=== PATIENT | male | born 1985 | race Caucasian/White ===

== ENCOUNTER 2018-05-19 05:21 | Inpatient (IN) | payer BC ==
[~2018-05-19] VITALS: Ht 180.3 cm; Wt 91.4 kg
[2018-05-19] MEDS ORDERED: LACTATED RINGERS 1,000 ML IV SCH (06:02)
[2018-05-19] MEDS ORDERED: OMEP40CA6 PO (06:20)
[2018-05-19] MEDS ORDERED: GABA600T2 PO (06:20)
[2018-05-19] MEDS ORDERED: BUPIVACAINE/PF-EPI 0.5% 1:200K ONE (06:29)
[2018-05-19] MEDS ORDERED: morphine SULFATE/PF 1 MG/ML, 10ML ONE (06:29)
[2018-05-19] MEDS ORDERED: THROMBIN 20,000 UNIT VIAL TP ONE (06:30)
[2018-05-19] MEDS ORDERED: VANCOMYCIN 1,000 MG ONE (06:30)
[2018-05-19] MEDS ORDERED: LIDOCAINE 1%-EPI 1:100K, 30ML ONE (06:30)
[2018-05-19] MEDS ORDERED: FENTANYL PF 100 MCG/2ML ONE ×3 (06:30→10:36)
[2018-05-19] MEDS ORDERED: BACITRACIN 50,000 UNIT ONE (06:30)
[2018-05-19 06:36] VITALS: BP 116/73
[2018-05-19] MEDS ORDERED: FENTANYL PF 250 MCG/5ML ONE (07:23)
[2018-05-19] MEDS ORDERED: MIDAZOLAM 1 MG/ML, 2ML ONE (07:41)
[2018-05-19] MEDS ORDERED: DEXAMETHASONE 4 MG/ML, 1ML ONE (07:46)
[2018-05-19] MEDS ORDERED: ROCURONIUM 10 MG/ML,10ML ONE (07:46)
[2018-05-19] MEDS ORDERED: NEOSTIGMINE 1 MG/ML, 10ML ONE (07:46)
[2018-05-19] MEDS ORDERED: GLYCOPYRROLATE 0.2MG/1ML, 5ML ONE (07:46)
[2018-05-19] MEDS ORDERED: ONDANSETRON 2MG/ML, 2ML ONE (07:46)
[2018-05-19] MEDS ORDERED: PROPOFOL 10 MG/ML, 20ML ONE (07:46)
[2018-05-19] MEDS ORDERED: LIDOCAINE-MPF 2% ,5ML ONE (07:46)
[2018-05-19] MEDS ORDERED: SUCCINYLCHOLINE 20 MG/ML, 10ML ONE (07:46)
[2018-05-19] MEDS ORDERED: CEFAZOLIN 1,000 MG ONE (07:46)
[2018-05-19] MEDS ORDERED: EPHEDRINE 50 MG/ML, 1ML ONE (07:46)
[2018-05-19] MEDS ORDERED: HEPARIN 1,000 UNITS/ML, 30ML ONE (08:04)
[2018-05-19] MEDS ORDERED: HYDROmorphone 1 MG/ML, 1ML IV PRN ×2 (09:00→14:30)
[2018-05-19] MEDS ORDERED: ALBUTEROL SULFATE 2.5 MG/3 ML NPPB PRN (09:00)
[2018-05-19] MEDS ORDERED: DIAZEPAM 5 MG/ML, 2ML IVPush PRN (09:00)
[2018-05-19] MEDS ORDERED: hydrALAzine 20 MG/ML, 1ML IV PRN (09:00)
[2018-05-19] MEDS ORDERED: ONDANSETRON 2MG/ML, 2ML IV PRN (09:00)
[2018-05-19] MEDS ORDERED: LABETALOL 5MG/ML, 20ML IV PRN (09:00)
[2018-05-19] MEDS ORDERED: FENTANYL PF 100 MCG/2ML IV PRN (09:00)
[2018-05-19] MEDS ORDERED: MEPERIDINE/PF 25MG/0.5ML IVPush PRN (09:00)
[2018-05-19] MEDS ORDERED: OXYcodone 5 MG/5 ML ORAL.SOL UDC PO PRN (09:00)
[2018-05-19] MEDS ORDERED: GENTAMICIN 80 MG/2 ML ONE (09:26)
[2018-05-19] MEDS ORDERED: MEPERIDINE/PF 50 MG/ML ONE (12:25)
[2018-05-19] MEDS ORDERED: OXYcodone 5 MG/5 ML ORAL.SOL UDC ONE (12:25)
[2018-05-19] MEDS ORDERED: BISACODYL 10 MG SUPP PR PRN (14:00)
[2018-05-19] MEDS ORDERED: METHOCARBAMOL 1,000 MG in DEXTROSE 5% 100 ML IV ONE ×2 (14:00→23:30)
[2018-05-19] MEDS ORDERED: DIPHENHYDRAMINE 50 MG/ML, 1ML IVPush PRN (14:00)
[2018-05-19] MEDS ORDERED: DIPHENHYDRAMINE 50 MG/ML, 1ML IM PRN (14:00)
[2018-05-19] MEDS ORDERED: DIAZEPAM 5 MG TABLET PO PRN (14:00)
[2018-05-19] MEDS ORDERED: DIAZEPAM 5 MG/ML, 2ML IV PRN (14:00)
[2018-05-19] MEDS ORDERED: PROMETHAZINE 25 MG/ML, 1ML IM PRN (14:00)
[2018-05-19] MEDS ORDERED: MAGNESIUM HYDROXIDE 8%, 30ML UDC PO PRN (14:00)
[2018-05-19] MEDS ORDERED: HYDROcodone/APAP 5/325 TABLET PO PRN (14:00)
[2018-05-19] MEDS ORDERED: HYDROcodone/APAP 10/325 MG TABLET PO PRN (14:00)
[2018-05-19] MEDS ORDERED: HYDROmorphone 2 MG/ML, 1ML IM PRN (14:00)
[2018-05-19 14:30] VITALS: BP 106/65
[2018-05-19] MEDS ORDERED: PROMETHAZINE 25 MG SUPP PR PRN (14:30)
[2018-05-19] MEDS: D5%-0.9% NACL+KCL 20MEQ 1,000 ML IV SCH ×2 (16:03→23:49)
[2018-05-19] MEDS: CEFAZOLIN PMX 1GM/50ML 50 ML IVPB SCH ×2 (16:06→23:50)
[2018-05-19] MEDS: ONDANSETRON 2MG/ML, 2ML IV PRN (16:49)
[2018-05-19] MEDS: OMEPRAZOLE 20 MG CAPSULE.DR PO SCH (18:22)
[2018-05-19] MEDS: GABAPENTIN 300 MG CAPSULE PO SCH ×2 (18:22→23:49)
[2018-05-19 19:05] VITALS: BP 111/64
[2018-05-19] MEDS: METHOCARBAMOL 750 MG in DEXTROSE 5% 100 ML IV SCH (22:00)
[2018-05-19] MEDS ORDERED: METHOCARBAMOL 1000MG/10 ML IV ONE (22:30)
[2018-05-19] MEDS: DIPHENHYDRAMINE 50 MG CAPSULE PO PRN (22:47)
[2018-05-20 00:10] VITALS: BP 107/55
[2018-05-20] MEDS: DIPHENHYDRAMINE 50 MG CAPSULE PO PRN (02:58)
[2018-05-20 04:05] VITALS: BP 111/60
[2018-05-20] MEDS: METHOCARBAMOL 750 MG in DEXTROSE 5% 100 ML IV SCH ×3 (05:52→21:46)
[2018-05-20 07:41] VITALS: BP 102/54
[2018-05-20] MEDS: CEFAZOLIN PMX 1GM/50ML 50 ML IVPB SCH ×2 (07:45→16:13)
[2018-05-20] MEDS: OMEPRAZOLE 20 MG CAPSULE.DR PO SCH ×2 (07:45→16:14)
[2018-05-20] MEDS: GABAPENTIN 300 MG CAPSULE PO SCH ×3 (07:45→21:14)
[2018-05-20] MEDS: SENNA/DOCUSATE TABLET PO SCH (07:46)
[2018-05-20] MEDS: OXYcodone/APAP 10/325MG TABLET PO PRN ×2 (08:27→12:07)
[2018-05-20] MEDS: D5%-0.9% NACL+KCL 20MEQ 1,000 ML IV SCH (11:28)
[2018-05-20] MEDS ORDERED: MEPERIDINE PCA 300 MG/30 ML IV PRN (13:30)
[2018-05-20 13:32] VITALS: BP 126/74
[2018-05-20] MEDS ORDERED: D5%-0.9% NACL+KCL 20MEQ 1,000 ML IV SCH (14:00)
[2018-05-20] MEDS: MEPERIDINE PCA 300 MG/30 ML IV PRN (14:37)
[2018-05-20 19:28] VITALS: BP 119/65
[2018-05-20] MEDS ORDERED: ZOLPIDEM 5MG TABLET PO PRN ×2 (21:00)
[2018-05-21] MEDS: CEFAZOLIN PMX 1GM/50ML 50 ML IVPB SCH ×3 (00:05→16:31)
[2018-05-21 02:17] VITALS: BP 97/55
[2018-05-21] MEDS: METHOCARBAMOL 750 MG in DEXTROSE 5% 100 ML IV SCH ×2 (06:17→14:12)
[2018-05-21 07:54] VITALS: BP 107/70
[2018-05-21] MEDS: GABAPENTIN 300 MG CAPSULE PO SCH ×3 (07:56→21:24)
[2018-05-21] MEDS: MULTIVITAMIN 1 TABLET PO SCH (07:56)
[2018-05-21] MEDS: SENNA/DOCUSATE TABLET PO SCH (07:56)
[2018-05-21] MEDS: OMEPRAZOLE 20 MG CAPSULE.DR PO SCH ×2 (07:56→16:31)
[2018-05-21] MEDS: ASCORBIC ACID 500 MG TABLET PO SCH (07:56)
[2018-05-21] MEDS: OXYcodone/APAP 10/325MG TABLET PO PRN ×4 (08:53→21:28)
[2018-05-21] MEDS: MEPERIDINE PCA 300 MG/30 ML IV PRN (13:19)
[2018-05-21 14:47] VITALS: BP 123/83
[2018-05-21 19:18] VITALS: BP 125/80
[2018-05-21] MEDS: METHOCARBAMOL 750 MG TABLET PO SCH (21:24)
[2018-05-22] MEDS: CEFAZOLIN PMX 1GM/50ML 50 ML IVPB SCH ×2 (00:11→08:05)
[2018-05-22] MEDS: OXYcodone/APAP 10/325MG TABLET PO PRN ×2 (01:45→06:05)
[2018-05-22 02:03] VITALS: BP 122/71
[2018-05-22] MEDS: METHOCARBAMOL 750 MG TABLET PO SCH (06:05)
[2018-05-22 07:25] VITALS: BP 120/71
[2018-05-22] MEDS: OMEPRAZOLE 20 MG CAPSULE.DR PO SCH (08:00)
[2018-05-22] MEDS: ONDANSETRON 2MG/ML, 2ML IV PRN (08:05)
[2018-05-22] MEDS: GABAPENTIN 300 MG CAPSULE PO SCH (08:22)
[2018-05-22] MEDS: MULTIVITAMIN 1 TABLET PO SCH (08:22)
[2018-05-22] MEDS: ASCORBIC ACID 500 MG TABLET PO SCH (08:22)
[2018-05-22] MEDS: SENNA/DOCUSATE TABLET PO SCH (08:23)
[2018-05-22] MEDS ORDERED: OXYC5CAP2 PO (10:10)
[2018-05-22] MEDS ORDERED: ASCO500T6 PO (10:10)
[2018-05-22] MEDS ORDERED: MULT-464 PO (12:08)
[2018-05-22] MEDS ORDERED: OMEP-110 PO (12:08)
== END 2018-05-22 12:15 | disposition home or self-care (01) | DRG 455 ==
LOC: ORIP 05:21 → 4NOR 13:27 → DCLOUNGE 05-22 11:54
PROVIDERS: ADMIT Orthopaedic Surgery Orthopaedic Surgery of the Spine; ATTEND Orthopaedic Surgery Orthopaedic Surgery of the Spine
PROC: 0SG3071 Fusion of Lumbosacral Joint with Autologous Tissue Substitute, Posterior Approach, Posterior Column, Open Approach (ICD-10-PCS; 2018-05-19)
PROC: 0SB40ZZ Excision of Lumbosacral Disc, Open Approach (ICD-10-PCS; 2018-05-19)
PROC: 0QB20ZZ Excision of Right Pelvic Bone, Open Approach (ICD-10-PCS; 2018-05-19)
PROC: 4A11X4G Monitoring of Peripheral Nervous Electrical Activity, Intraoperative, External Approach (ICD-10-PCS; 2018-05-19)
PROC: 00HU03Z Insertion of Infusion Device into Spinal Canal, Open Approach (ICD-10-PCS; 2018-05-19)
PROC: 3E0R33Z Introduction of Anti-inflammatory into Spinal Canal, Percutaneous Approach (ICD-10-PCS; 2018-05-19)
PROC: 0SG30AJ Fusion of Lumbosacral Joint with Interbody Fusion Device, Posterior Approach, Anterior Column, Open Approach (ICD-10-PCS; principal; 2018-05-19 07:30)
DX: M48.07 Spinal stenosis, lumbosacral region (principal); M54.17 Radiculopathy, lumbosacral region; M47.817 Spondylosis without myelopathy or radiculopathy, lumbosacral region; M53.2X7 Spinal instabilities, lumbosacral region; K21.9 Gastro-esophageal reflux disease without esophagitis; Z88.1 Allergy status to other antibiotic agents
CPT/HCPCS: 36415; 72100; J3490; 86850; 86900; 86923; C1713; G0378; J0690; J1100; J1644; J2175; J2250; J2274; J2405; J2704; J2710; J3010; J3370; C1751; C1762; J0330; J1580; J2800; J3480; J7120